=== PATIENT | male | born 1935 | race Caucasian/White ===

== ENCOUNTER → 2017-04-21 | Outpatient (CLI) | payer MEDICARE ==
[~2017-04-21] MED LIST: REGADENOSON 0.4 MG/5 ML DISP.SYRIN. IV ONE
--- NOTE | 2017-04-21 13:07 | PCVCIMAG ---
EXAM: AORTOILIAC DUPLEX INDICATION: Peripheral arterial disease FINDINGS: AORTA: Suprarenal aorta measures maximum diameter of 2.6 cm. There is not a fusiform infrarenal aortic aneurysm. The infrarenal aorta measures maximum diameter of 2.2 cm. No aortic stenosis. RIGHT COMMON ILIAC ARTERY: Maximum diameter is 1.4 cm. No significant stenosis. RIGHT EXTERNAL ILIAC ARTERY: No significant stenosis. LEFT COMMON ILIAC ARTERY: Maximum diameter is 1.3 cm. No significant stenosis. LEFT EXTERNAL ILIAC ARTERY: No significant stenosis. IMPRESSION: No abdominal aortic aneurysm. No aortoiliac stenosis seen. The right and left common femoral veins and external iliac veins show normal venous flow waveforms with no evidence of arterialization. Nothing to suggest arterial-venous fistula. LOC:[id number]
--- NOTE | 2017-04-21 13:08 | PCVCIMAG ---
EXAM: RIGHT LOWER EXTREMITY ARTERIAL DUPLEX INDICATION: Peripheral Arterial Disease. Leg pain. Question of arterial venous fistula. FINDINGS: Right Leg: Satisfactory arterial waveforms throughout the common/profunda/superficial femoral, popliteal, anterior tibial, peroneal, and posterior tibial arteries. No flow limiting stenosis seen. IMPRESSION: No flow limiting stenosis in the right lower extremity. Arterial waveforms are normal throughout the right lower extremity with no evidence of arteriovenous fistula. LOC:[id number]
--- NOTE | 2017-04-22 11:58 | PCVCIMAG ---
APPROVED REPORT Exam: Nuclear Stress Test Indication: Pre-Operative CV evaluation Patient Location: Out-Patient Stress Nurse: Jadyn Diggs RN, Marlin Reeves RN GA Tech:Laverne Chantelle [facility] Ht: 5 ft 7 in Wt: 139 lbs BSA: 1.73 m2 HR: 49 bpm BP: 200/82 mmHg BMI: 21.76 Rhythm: Sinus Bradycardia Medical History Medical History: HTN, Hyperlipidemia, Atrial Fibrillation (on Flecainaide) PVD, Age Medications: Lipitor, Losartan, Xarelto, Flecainide Allergies: Iodine Pretest Chest Pain Characteristics: No chest pain Exercise History: Physically active Stress Test Details Stress Test: Pharmacologic stress testing performed using 0.4 mg of regadenoson per 5 mL given IV over 10 seconds. Reason for pharmacologic stress test: physical limitation. HR Resting HR: 49 bpmMax Heart Rate (APMHR): 140 bpm Max HR Achieved: 92 bpmTarget HR (85% APMHR): 119 bpm % of APMHR: 65 Recovery HR: 73 bpm BP Resting BP: 200/82 mmHg Max BP: 184/84 mmHg ECG Resting ECG: Sinus Bradycardia Stress ECG: Sinus Rhythm ST Change: Non-ischemic Arrhythmia: None Recovery ECG: Sinus Rhythm Clinical Reason for Termination: Completed protocol Stress Symptoms: Dyspnea Exercise duration: 0 min 55 sec Exercise capacity: 1.0 METs Symptoms resolved during recovery. Stress ECG Conclusion ECG: Non-ischemic NM EXAM: Myocardial Perfusion REST/STRESS Imaging Protocol: Rest Tc-99m/Stress Tc-99m 1 day Resting Data Rest SPECT myocardial perfusion imaging was performed in supine position 45 minutes following the intravenous injection of 8.6 mCi of Tc-99m Sestamibi. Time of rest injection: 1230 Date: 04/21/2017 Administration Route: IV Administration Site: Right AC Pharmacologic Stress Pharmacologic stress test was performed by injecting Regadenoson 0.4 mg IV push followed by the intravenous injection of 25.4 mCi of Tc-99m Sestamibi. Time of stress injection: 1330 Date: 04/21/2017 Administration Route: IV Administration Site: Right AC Gated Stress SPECT was performed 45 minutes after stress injection. The images were gated to evaluate regional wall motion and calculate left ventricular ejection fraction. Study Quality Study: Good Study Data Post stress, the left ventricular ejection was 62%.. SSS: 0 SRS: 1 SDS: 0 TID = 1.01. Perfusion No evidence of stress induced ischemia or prior myocardial infarction. Wall Motion Normal left ventricular size and function with no regional wall motion abnormalities. Nuclear Conclusion ECG Findings: non-ischemic Clinical Findings: non-diagnostic Nuclear Findings: negative for ischemia No evidence of stress induced ischemia or prior myocardial infarction. Normal left ventricular size and function with no regional wall motion abnormalities. Post stress, the left ventricular ejection was 62%.. No prior study available for comparison. <Conclusion> ECG: Non-ischemic
== END | disposition home or self-care (01) ==
LOC: PCVCIMAG 10:38
PROVIDERS: ATTEND Internal Medicine
DX: Z01.810 Encounter for preprocedural cardiovascular examination (principal); I48.0 Paroxysmal atrial fibrillation; I73.9 Peripheral vascular disease, unspecified; I10 Essential (primary) hypertension; E78.5 Hyperlipidemia, unspecified; K52.9 Noninfective gastroenteritis and colitis, unspecified; Q27.30 Arteriovenous malformation, site unspecified
CPT/HCPCS: 78452; 93017; 93926; 93978; A9500; J2785